=== PATIENT | female | born 1995 | race Caucasian/White ===

== ENCOUNTER 2018-03-06 19:34 | Outpatient (CLI) | payer MEDICAID ==
[2018-03-06 20:20] LABS: Amorphous Sediment,Urine Rare /hpf; Appearance,Urine Clear (Clear); Bacteria,Urine Occasional /hpf; Bilirubin,Urine Negative (Negative); Blood,Urine Negative (Negative); Color,Urine Yellow; Glucose,Urine (UA) Negative (Negative); Ketones,Urine Negative (Negative); Leukocyte Esterase,Urine Small (Negative); Mucus,Urine Rare /hpf; Nitrite,Urine Negative (Negative); Protein,Urine Negative (Negative); Specific Gravity,Urine 1.018 (1.001-1.035); Squamous Epithelial Cell,Urine 1 /hpf (0-4); Urobilinogen,Urine <2.0 mg/dL (<2.0); WBC,Urine 6 /hpf (0-5)
[2018-03-06 20:33] VITALS: BP 120/73; PULSE 87; RESP 15; TEMP 97.8
--- NOTE | 2018-03-07 08:44 | P.MSEPDOC ---
Presenting Problems - Arrival Data Date of Arrival on Unit: 03/06/18 Time of Arrival on Unit: 19:34 Mode of Transport: Ambulatory - Complaint OB-Reason for Admission/Chief Complaint: Possible Onset of Labor, Rule Out PROM , Observation/Evaluation Comment: Pt states that she has had some cramping and watery discharge since she woke up this morning Medical History - Information : 2 Para: 1 Term: 1 : 0 Abortions: Spontaneous or Elective: 0 Number of Living Children: 1 - Gestational Age Gestational Age by AMIRA (wks/days): 32 Weeks and 6 Days Review of Systems - Review of Systems Constitutional: No problems Breast: No problems ENT: No problems Cardiovascular: No problems Respiratory: No problems Gastrointestinal: No problems Genitourinary: No problems Musculoskeletal: No problems Neurological: No problems Skin: No problems Vital Signs - Temperature Temperature: 97.8 F Temperature Source: Temporal Artery Scan - Pulse Pulse Oximetery Pulse Rate: 87 Pulse Assessment Method: Automatic Cuff - Respirations Respiratory Rate: 15 Oxygen Delivery Method: Room Air O2 Sat by Pulse Oximetry: 99 - Blood Pressure Right Arm Blood Pressure: 120/73 Blood Pressure Mean: 88 Blood Pressure Source: Automatic Cuff Medical Screen Scoring (Pre) - Cervical Exam Dilation: 1-3 cm = 1 Membranes: Intact - Uterine Contractions Frequency: N/A Duration: N/A Intensity: N/A - Maternal Vital Signs Maternal Temperature: N/A Maternal Blood Pressure: N/A Signs of Preeclampsia: N/A Maternal Respirations: N/A - Pain Assessment Pain Location and Character: Lower, Abdomen Pain Scale Used: Numeric (1 - 10) Pain Intensity: 4 Pain Management Goal: 2 Pain Description: *Acute, Aching Pain Radiation Location: none Pain Frequency: Intermittent Pain Duration: 1 Pain Duration Units: Days Pain Behavior: None Exhibited Pain Aggravating Factors: None - Maternal Trauma Maternal Trauma: N/A - Assessment Baseline FHR: 145 Heart Rate - NICHD Category: Category I (Normal) = 0 NST: Reactive Position: N/A Station: N/A - Total Score Total Score (Pre): 1 - Level of Risk Level of Risk: Low (0-5) Physician Notification (Pre) - Physician Notified Physician Notified Date: 03/06/18 Physician Notified Time: 20:05 Physician/Practitioner Notifed:: Dr osorio New Order Received: Yes - Notification Comment Comment: Order to send UA, FFN, check cervix Medical Screen Scoring (Post) - Cervical Exam Dilation: 1-3 cm = 1 Membranes: Intact - Uterine Contractions Frequency: > 5 minutes apart = 1 Duration: N/A Intensity: N/A - Maternal Vital Signs Maternal Temperature: N/A Maternal Blood Pressure: N/A Signs of Preeclampsia: N/A Maternal Respirations: N/A - Maternal Trauma Maternal Trauma: N/A - Assessment Heart Rate: 145 Heart Rate - NICHD Category: Category I (Normal) = 0 NST: Reactive Position: N/A Station: N/A - Total Score Total Score (Post): 2 - Post Treatment Level of Risk Post Treatment Level of Risk: Low (0-5) Disposition - Disposition OB Disposition: Discharge to home Discharge Date: 03/06/18 Discharge Time: 21:20 I agree with the RN Medical Screening Exam: Yes Risk & Benefit of care provided described in d/c instruction: Yes Diagnosis: FALSE LABOR BEFORE 37 COMPLETED WEEKS OF GEST, THIRD TRI
== END 2018-03-06 21:20 | disposition home or self-care (01) ==
LOC: FBPOP 19:34
PROVIDERS: ATTEND Obstetrics & Gynecology
DX: O47.03 False labor before 37 completed weeks of gestation, third trimester (principal); Z3A.32 32 weeks gestation of pregnancy
CPT/HCPCS: 59025; 81001; 82731; 84112; 99213

== ENCOUNTER 2018-03-27 23:25 | Outpatient (CLI) | payer MEDICAID, BC ==
[2018-03-27 23:56] VITALS: BP 118/66; PULSE 99; RESP 16; TEMP 96.4
--- NOTE | 2018-03-31 17:56 | P.MSEPDOC ---
Presenting Problems - Arrival Data Date of Arrival on Unit: 03/27/18 Time of Arrival on Unit: 23:25 Mode of Transport: Wheelchair - Complaint OB-Reason for Admission/Chief Complaint: Possible Onset of Labor Medical History - Information : 2 Para: 1 Term: 1 : 0 Abortions: Spontaneous or Elective: 0 Number of Living Children: 1 - Gestational Age Gestational Age by AMIRA (wks/days): 35 Weeks and 6 Days Review of Systems - Review of Systems Constitutional: No problems Breast: No problems ENT: No problems Cardiovascular: No problems Respiratory: No problems Gastrointestinal: No problems Genitourinary: No problems Musculoskeletal: No problems Neurological: No problems Skin: No problems Vital Signs - Temperature Temperature: 96.4 F Temperature Source: Temporal Artery Scan - Pulse Right Brachial Pulse Rate: 99 Pulse Assessment Method: Automatic Cuff - Respirations Respiratory Rate: 16 Oxygen Delivery Method: Room Air O2 Sat by Pulse Oximetry: 100 - Blood Pressure Right Arm Blood Pressure: 118/66 Blood Pressure Mean: 83 Blood Pressure Source: Automatic Cuff Medical Screen Scoring (Pre) - Cervical Exam Dilation: 1-3 cm = 1 Membranes: Intact - Uterine Contractions Frequency: > 5 minutes apart = 1 Duration: N/A Intensity: N/A - Maternal Vital Signs Maternal Temperature: N/A Maternal Blood Pressure: N/A Signs of Preeclampsia: N/A - Pain Assessment Pain Location and Character: Lower, Abdomen Pain Scale Used: Numeric (1 - 10) Pain Intensity: 5 Pain Description: *Acute, Cramping Pain Frequency: Intermittent Pain Duration Units: Minutes Pain Behavior: None Exhibited Pain Aggravating Factors: Contractions - Maternal Trauma Maternal Trauma: N/A - Assessment Baseline FHR: 135 Heart Rate - NICHD Category: Category I (Normal) = 0 NST: Reactive Position: N/A Station: N/A - Total Score Total Score (Pre): 2 - Level of Risk Level of Risk: Low (0-5) Physician Notification (Pre) - Physician Notified Physician Notified Date: 03/27/18 Physician Notified Time: 23:46 Physician/Practitioner Notifed:: Dr. Polanco Spoke With: Dr. Polanco - Notification Comment Comment: Dr. Polanco in unit and reviewed tracing. report given on pt. Pt c/ o. Vs wnl. vag exam of 2/60/-3. Orders recieved to orally hydrate with water. To perform vag exam after 1 hr, if no change to d/c pt to home. Disposition - Disposition OB Disposition: Discharge to home Discharge Date: 03/28/18 Discharge Time: 00:47 I agree with the RN Medical Screening Exam: Yes Risk & Benefit of care provided described in d/c instruction: Yes Diagnosis: FALSE LABOR BEFORE 37 COMPLETED WEEKS OF GEST, THIRD TRI
== END 2018-03-28 00:47 | disposition home or self-care (01) ==
LOC: FBPOP 23:25
PROVIDERS: ATTEND Obstetrics & Gynecology
DX: O47.03 False labor before 37 completed weeks of gestation, third trimester (principal); Z3A.35 35 weeks gestation of pregnancy
CPT/HCPCS: 59025; 99213

== ENCOUNTER 2018-04-26 05:56 | Inpatient (IN) | payer BC, MEDICAID ==
[2018-04-26] MEDS ORDERED: OXYTOCIN 10 UNIT/ML 1 ML VIAL IM PRN (06:11)
[2018-04-26] MEDS ORDERED: TERBUTALINE 1 MG/ML VIAL SQ PRN (06:11)
[2018-04-26] MEDS ORDERED: LIDOCAINE 0.5% (PF) 5 MG/ML (50 ML SDV) SQ PRN (06:11)
[2018-04-26] MEDS ORDERED: CARBOPROST TROMETHAMINE 250 MCG/ML 1 ML AMP IM PRN (06:11)
[2018-04-26] MEDS ORDERED: METHYLERGONOVINE 0.2 MG/ML 1 ML AMP IM PRN (06:11)
[2018-04-26] MEDS ORDERED: OXYTOCIN 20 UNITS/1000 ML NS 1,000 ML IV SCH (06:15)
--- NOTE | 2018-04-26 06:40 | P.HPOB ---
History of Present Illness H&P Date: 04/26/18 This is a 22-year-old white female 2 para 1001 EDC 04/25/2018 at 40 and one sevenths weeks' gestation. Patient presents for induction with favorable multiparous cervix, postdates . Fetus is been active throughout the . She denies fluid leakage or vaginal bleeding. She is having irregular mild contractions. Past medical history is significant for irritable bowel syndrome. Past surgical history left shoulder repair 2012. Current medications vitamins. ALLERGIES include penicillin and sulfa to both she reports hives. Family history significant for infantile autism and type 2 diabetes. Obstetric history significant for vaginal delivery 2014, liveborn male. 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 She denies alcohol or drug use. history is significant for blood type O positive, rubella status immune. VDRL testing, urine culture, hepatitis B surface antigen, HIV testing, gonorrhea and chlamydia cultures, group B strep cultures all negative. One- hour Glucola 110. On exam this is a pleasant young female who is 5 foot 4 inches, 160 pounds, vital signs are stable including a blood pressure of 103/66, patient is afebrile. The general physical exam is within normal limits. The extremities reveal no edema. The chest is clear. Cervix is 9 m dilated, 70% effaced, -2 station, vertex presentation. Artificial amniorrhexis reveals clear fluid. heart rate is consistent with reactive NST. Impression: 40 and one sevenths weeks intrauterine , here for induction of labor. All signs reassuring. Plan: Oxytocin augmentation per hospital protocol. Close maternal and surveillance. Anticipate normal spontaneous vaginal delivery. Review of Systems Constitutional: Reports as per HPI Past Medical History Past Medical History: No Reported History History of Any Multi-Drug Resistant Organisms: None Reported Past Surgical History: No Surgical Hx Reported Smoking Status: Never smoker Medications and Allergies Home Medications Medication Instructions Recorded Confirmed Type Pnv,Calcium 72/Iron/Folic Acid 1 tab PO DAILY 11/20/14 04/26/18 History [ Vitamin with Low Iron] Allergies Allergy/AdvReac Type Severity Reaction Status Date / Time Penicillins Allergy Rash/Hives Verified 04/26/18 06:10 Sulfa (Sulfonamide Allergy Rash/Hives Verified 04/26/18 06:10 Antibiotics) Exam Intake and Output 04/25/18 04/25/18 04/26/18 14:59 22:59 06:59 Other: Weight 72.575 kg See dictation under HPI please Assessment and Plan Assessment: 40 and one sevenths weeks intrauterine , here for induction of labor. All signs reassuring. Plan: Close maternal and surveillance. Oxytocin per hospital protocol. Analgesic options have been reviewed with the patient. Anticipate normal spontaneous vaginal delivery. Time with Patient: Less than 30
[2018-04-26] MEDS: LACTATED RINGERS 1,000 ML IV SCH ×2 (06:47→08:54)
[2018-04-26 06:52] LABS: Basophils # (A) 0.1 k/uL (0-0.2); Basophils % (A) 1 %; Eosinophils # (A) 0.2 k/uL (0-0.7); Eosinophils % (A) 2 %; HCT 32.4 % (34.0-46.0); HGB 10.7 gm/dL (11.4-16.0); Hypochromasia Slight; Lymphocytes # (A) 1.9 k/uL (1.0-4.8); Lymphocytes % (A) 20 %; MCH 25.8 pg (25.0-35.0); MCV 78.1 fL (80.0-100.0); Mean Platelet Volume 9.6; Monocytes # (A) 0.5 k/uL (0-1.0); Monocytes % (A) 5 %; Neutrophils # (A) 6.7 k/uL (1.3-7.7); Neutrophils % (A) 70 %; Platelet Count 215 k/uL (150-450); RBC 4.14 m/uL (3.80-5.40); RDW 13.5 % (11.5-15.5); WBC 9.6 k/uL (4.0-11.0)
[2018-04-26 07:24] VITALS: BMI 27.4
[2018-04-26] MEDS ORDERED: BUTORPHANOL 1 MG/ML 1 ML VIAL IV PRN (07:53)
[2018-04-26] MEDS ORDERED: ROPIVACAINE 5MG/ML 20ML VIAL ONE (08:23)
[2018-04-26] MEDS ORDERED: fentaNYL (PF) 50 MCG/ML 5 ML AMP ONE (08:23)
[2018-04-26] MEDS ORDERED: SODIUM CHLORIDE 0.9% 100 ML BAG ONE (08:23)
[2018-04-26] MEDS ORDERED: diphenhydrAMINE 50 MG/ML 1 ML VIAL IVP PRN ×2 (11:07)
[2018-04-26] MEDS ORDERED: HYDROCORTISONE 2.5% RECTAL CREAM 30 GM TUBE RECTAL PRN (11:07)
[2018-04-26] MEDS ORDERED: diphenhydrAMINE 25 MG CAP PO PRN (11:07)
[2018-04-26] MEDS ORDERED: diphenhydrAMINE 50 MG CAP PO PRN (11:07)
[2018-04-26] MEDS ORDERED: SIMETHICONE 80 MG CHEWABLE PO PRN (11:07)
[2018-04-26] MEDS ORDERED: LANOLIN CREAM 5 GM TUBE TOPICAL PRN (11:07)
[2018-04-26] MEDS ORDERED: WITCH HAZEL 1 EACH MED..PAD TOPICAL PRN (11:07)
[2018-04-26] MEDS ORDERED: BENZOCAINE/MENTHOL SPRAY 1 GM/SPRAY AEROSOL TOPICAL PRN (11:07)
[2018-04-26] MEDS ORDERED: ZOLPIDEM 5 MG TAB PO PRN (11:07)
[2018-04-26] MEDS ORDERED: ACETAMINOPHEN TAB 325 MG TAB PO PRN (11:07)
--- NOTE | 2018-04-26 11:07 | P.PROBDLV ---
Vaginal Delivery Note - . Vaginal Delivery Note: This is a 22-year-old white female 2 para 1001 EDC 04/25/2018 at 40 and one sevenths weeks' gestation. Patient presents for induction with favorable multiparous cervix. Group B strep cultures negative, blood type O positive, rubella status immune. Please see dictated history and physical for details. Artificial amniorrhexis revealed clear fluid. Oxytocin was started and titrated per hospital protocol. Patient became uncomfortable, requested an epidural and this was placed without difficulty. She progressed through the first stage of labor unremarkably, became completely dilated at 1052 hours. Perineal body was prepped and draped in the usual sterile fashion. With excellent maternal expulsive efforts the infant's head delivered occiput anterior. She restituted accordingly. There was a nuchal cord 1 that was reduced. The left or anterior shoulder was delivered from underneath the pubic symphysis the oropharynx, nasopharynx, and external nares were all bulb suctioned. Patient was officially delivered of a liveborn female at 1055 hrs. Umbilical cord was doubly clamped and ligated, she was handed to waiting nurses for evaluation where scores of 8 and 9 at one and 5 minutes respectively were given. Placenta delivered spontaneously, it was inspected and noted to be intact with trivascular cord and a true knot in the cord at 1058 hrs. Cord blood has been sent to the lab for evaluation per patient's O+ status. Uterus is then massaged. Inspection of the cervix, vagina, perineum, periurethral, and perirectal areas revealed no lacerations and no defects. Total estimated blood loss 200 mL's. All sponge needle and enhancement counts are correct at the end of the procedure. Patient and her family are allowed to begin the bonding experience in the LDR.
[2018-04-26] MEDS: IBUPROFEN 600 MG TAB PO PRN (15:06)
[2018-04-26 15:59] VITALS: RESP 18
[2018-04-26] MEDS: SENNOSIDES-DOCUSATE SODIUM 1 EACH TAB PO SCH (19:50)
--- NOTE | 2018-04-27 07:49 | P.DS ---
Providers Date of admission: 04/26/18 05:56 Expected date of discharge: 04/27/18 Attending physician: Jenny Gardiner Primary care physician: Stated None Hospital Course: This is a 22-year-old white female 2 para 1001 EDC 04/25/1937 and one sevenths weeks' gestation. Patient presented for induction with favorable multiparous cervix. is unremarkable, rubella status immune, group B strep cultures negative, blood type O positive. Please see dictated history and physical for details. Artificial amniorrhexis was performed for clear fluid. Epidural was placed per her request. Patient went on to deliver a liveborn female vaginally, with scores of 8 and 9 at one and 5 minutes respectively. There was an estimated blood loss of 200 mL, 3 vessel cord, and a true knot in the cord along with a nuchal cord 1. Infant weighed 6 lbs. 8 oz. or 2955 g. Please see my dictated delivery summary for details. This morning the patient is doing well. She is voiding, ambulating and passing flatus without difficulty. Vital signs are stable and she is afebrile. Fundus is firm and in the midline, symmetric and 18 week size. Extremities are negative for edema. Breasts are not engorged. [place] is doing well. Breast-feeding is going well. I have given her prescription for a double electric breast pump per her request. Patient is therefore being discharged home in very good condition. She will follow-up in the office with me in 6 weeks. I have reminded her no intercourse , tampons or douching. She will use [id number] Advil, Motrin or Aleve as needed for pain. I've asked her to call me with any fevers shakes or chills, foul smelling or copious lochia, with the passage of large blood clots, with any pain not alleviated by [id number] products, with any difficulties breast-feeding, or with any concerns. We have briefly reviewed options for contraception and we will discuss this further in the office. Patient Condition at Discharge: Good Plan - Discharge Summary Discharge Rx Participant: No New Discharge Prescriptions: No Action Pnv,Calcium 72/Iron/Folic Acid [ Vitamin with Low Iron] 1 tab PO DAILY Discharge Medication List Pnv,Calcium 72/Iron/Folic Acid [ Vitamin with Low Iron] 1 tab PO DAILY 11/20/14 [History] Follow up Appointment(s)/Referral(s): Jenny Gardiner MD [STAFF PHYSICIAN] - 6 Weeks Discharge Disposition: HOME SELF-CARE
[2018-04-27] MEDS: SENNOSIDES-DOCUSATE SODIUM 1 EACH TAB PO SCH (08:00)
[2018-04-27 08:05] LABS: Basophils # (A) 0.1 k/uL (0-0.2); Basophils % (A) 1 %; Eosinophils # (A) 0.1 k/uL (0-0.7); Eosinophils % (A) 1 %; HCT 31.2 % (34.0-46.0); HGB 10.3 gm/dL (11.4-16.0); Hypochromasia Slight; Lymphocytes # (A) 2.4 k/uL (1.0-4.8); Lymphocytes % (A) 18 %; MCH 26.2 pg (25.0-35.0); MCHC 33.1 g/dL (31.0-37.0); MCV 79.1 fL (80.0-100.0); Mean Platelet Volume 9.4; Monocytes # (A) 0.7 k/uL (0-1.0); Monocytes % (A) 5 %; Neutrophils # (A) 9.9 k/uL (1.3-7.7); Neutrophils % (A) 74 %; Platelet Count 182 k/uL (150-450); RBC 3.94 m/uL (3.80-5.40); RDW 13.7 % (11.5-15.5); WBC 13.4 k/uL (4.0-11.0)
[2018-04-27 10:22] VITALS: BP 105/54; PULSE 80; TEMP 97.6
[2018-04-27] MEDS: IBUPROFEN 600 MG TAB PO PRN (11:14)
== END 2018-04-27 13:16 | disposition home or self-care (01) | DRG 807 ==
LOC: 4FBP 05:56
PROVIDERS: ADMIT Obstetrics & Gynecology; ATTEND Obstetrics & Gynecology
PROC: 10E0XZZ Delivery of Products of Conception, External Approach (ICD-10-PCS; principal; 2018-04-26)
PROC: 00HU33Z Insertion of Infusion Device into Spinal Canal, Percutaneous Approach (ICD-10-PCS; 2018-04-26)
PROC: 3E0R3BZ Introduction of Anesthetic Agent into Spinal Canal, Percutaneous Approach (ICD-10-PCS; 2018-04-26)
PROC: 10907ZC Drainage of Amniotic Fluid, Therapeutic from Products of Conception, Via Natural or Artificial Opening (ICD-10-PCS; 2018-04-26)
PROC: 3E033VJ Introduction of Other Hormone into Peripheral Vein, Percutaneous Approach (ICD-10-PCS; 2018-04-26)
DX: O48.0 Post-term pregnancy (principal); Z37.0 Single live birth; O69.81X0 Labor and delivery complicated by cord around neck, without compression, not applicable or unspecified; O99.62 Diseases of the digestive system complicating childbirth; K58.9 Irritable bowel syndrome, unspecified; O69.2XX0 Labor and delivery complicated by other cord entanglement, with compression, not applicable or unspecified; Z3A.40 40 weeks gestation of pregnancy; Z88.0 Allergy status to penicillin; Z88.2 Allergy status to sulfonamides; Z83.3 Family history of diabetes mellitus; Z84.89 Family history of other specified conditions
CPT/HCPCS: 85025; 86850; 86900; 86901

== ENCOUNTER 2023-08-02 20:02 | Emergency (ER) | payer BC, MEDICAID ==
[2023-08-02 20:35] VITALS: TEMP 97.9
--- NOTE | 2023-08-02 20:37 | ED ---
Head Injury HPI - General Source: patient, RN notes reviewed Mode of arrival: ambulatory Limitations: no limitations <Evangelina Bustos - Last Filed: 08/02/23 20:35> - General Source: patient, RN notes reviewed, old records reviewed Mode of arrival: ambulatory Limitations: no limitations - History of Present Illness MD Complaint: head injury, head pain, fall -: days(s) (2) Mechanism of Injury: unsure (Syncopal related, patient states she has narcolepsy and may have fell asleep or passed out) Location: face Loss of Consciousness: yes Previous Trauma to this Area: No Place: home Radiation: none Severity: severe Severity scale (1-10): 9 Provoking factors: none known Other Injuries: none Associated Symptoms: nausea, vomiting <Tarun Smith - Last Filed: 08/04/23 06:25> - General Chief complaint: Head Injury Stated complaint: Fall-Head Injury Time Seen by Provider: 08/02/23 20:12 - History of Present Illness Initial comments: 28-year-old female with complaint of left eye ecchymosis after fall on Wednesday. Patient states that she has narcolepsy and fell asleep while standing striking side of her left hand resulting in a hematoma and ecchymosis. (Evangelina Bustos) This is a 28-year-old female to the ER for evaluation of significant left eye pain and swelling. Patient states she was standing and had an episode where she passed out falling to the ground hitting the left side of her head left. Patient's pain is severe currently and she has significant swelling to the left side of her face around her left orbit (Tarun Smith) - Related Data Home Medications Medication Instructions Recorded Confirmed Pnv,Calcium 72/Iron/Folic Acid 1 tab PO DAILY 11/20/14 04/26/18 [ Vitamin with Low Iron] Allergies/Adverse reactions: Allergies Allergy/AdvReac Type Severity Reaction Status Date / Time Penicillins Allergy Rash/Hives Verified 08/02/23 20:10 Sulfa (Sulfonamide Allergy Rash/Hives Verified 08/02/23 20:10 Antibiotics) Review of Systems ROS Other: All systems not noted in ROS Statement are negative. <Evangelina Bustos - Last Filed: 08/02/23 20:35> ROS Other: All systems not noted in ROS Statement are negative. <Tarun Smith - Last Filed: 08/04/23 06:25> ROS Statement: Those systems with pertinent positive or pertinent negative responses have been documented in the HPI. Past Medical History Past Medical History: No Reported History Additional Past Medical History / Comment(s): narcolepsy History of Any Multi-Drug Resistant Organisms: None Reported Past Surgical History: No Surgical Hx Reported Additional Past Surgical History / Comment(s): left shoulder surgery Past Anesthesia/Blood Transfusion Reactions: No Reported Reaction Past Psychological History: No Psychological Hx Reported Smoking Status: Vaper Past Alcohol Use History: None Reported Past Drug Use History: None Reported - Past Family History Mother Family Medical History: No Reported History <Evangelina Bustos - Last Filed: 08/02/23 20:35> General Exam Limitations: no limitations <Evangelina Bustos - Last Filed: 08/02/23 20:35> General appearance: alert, in no apparent distress Head exam: Present: normocephalic, normal inspection. Absent: atraumatic (Significant swelling and ecchymosis to left orbit with severe pain and tenderness to palpation) Eye exam: Present: normal appearance, PERRL, EOMI. Absent: scleral icterus, conjunctival injection, periorbital swelling ENT exam: Present: normal exam, mucous membranes moist Neck exam: Present: normal inspection. Absent: tenderness, meningismus, lymphadenopathy Respiratory exam: Present: normal lung sounds bilaterally. Absent: respiratory distress, wheezes, rales, rhonchi, stridor Cardiovascular Exam: Present: regular rate, normal rhythm, normal heart sounds. Absent: systolic murmur, diastolic murmur, rubs, gallop, clicks GI/Abdominal exam: Present: soft, normal bowel sounds. Absent: distended, tenderness, guarding, rebound, rigid Extremities exam: Present: normal inspection, full ROM, normal capillary refill. Absent: tenderness, pedal edema, joint swelling, calf tenderness Back exam: Present: normal inspection Neurological exam: Present: alert, oriented X3, CN II-XII intact Psychiatric exam: Present: normal affect, normal mood Skin exam: Present: warm, dry, intact, normal color. Absent: rash <Tarun Smith - Last Filed: 08/04/23 06:25> - General Exam Comments Initial Comments: Visual Physical Exam Vital signs reviewed General: Well-appearing, nontoxic, no acute distress. Head: Normocephalic, atraumatic, left eye ecchymosis around soft tissue Eyes: PERRLA, EOMI ENT: Airway patent Chest: Nonlabored breathing Skin: No visual rash, normal skin tone Neuro: Alert and oriented 3 Musculoskeletal: No gross abnormalities (Stieler,Evangelina) Course <Tarun Smith - Last Filed: 08/04/23 06:25> Vital Signs 08/02/23 08/02/23 20:07 23:37 Temperature 97.9 F 97.9 F Pulse Rate 94 96 Respiratory 18 20 Rate Blood Pressure 128/77 118/76 O2 Sat by Pulse 100 100 Oximetry - Reevaluation(s) Reevaluation #1: 08/02/23 22:02 Medical records reviewed (Tarun Smith) Reevaluation #2: 08/02/23 22:02 Patient symptoms unchanged (Tarun Smith) Reevaluation #3: Patient informed of results and questions answered (Tarun Smith) Reevaluation #4: 08/02/23 22:03 Was pt. sent in by a medical professional or institution (, PA, SIGNAL CONSTRUCTOR, urgent care, hospital, or intermediate...) When possible be specific @ -no Did you speak to anyone other than the patient for history (EMS, parent, family, police, friend...)? What history was obtained from this source @ -no Did you review nursing and triage notes (agree or disagree)? Why? @ -agree Are old charts reviewed (outside hosp., previous admission, EMS record, old EKG, old radiological studies, urgent care reports/EKG's, intermediate records)? Report findings @ -yes Differential Diagnosis (chest pain, altered mental status, abdominal pain women, abdominal pain men, vaginal bleeding, weakness, fever, dyspnea, syncope, headache, dizziness, GI bleed, back pain, seizure, CVA, palpatations, mental health, musculoskeletal)? @ -prior EKG interpreted by me (3pts min.). @ -no X-rays interpreted by me (1pt min.). @ -no CT interpreted by me (1pt min.). @ -yes negative for acute disease U/S interpreted by me (1pt. min.). @ -no What testing was considered but not performed or refused? (CT, X-rays, U/S, labs)? Why? @ -none What meds were considered but not given or refused? Why? @ -none Did you discuss the management of the patient with other professionals (professionals i.e. Dr., PA, SIGNAL CONSTRUCTOR, lab, RT, psych nurse, socially responsible investment adviser, content editor, teacher, low altitude air defense officer, caseworker)? Give summary @ -no Was smoking cessation discussed for >3mins.? @ -no Was critical care preformed (if so, how long)? @ -no Were there social determinants of health that impacted care today? How? (Homelessness, low income, unemployed, alcoholism, drug addiction, transportation, low edu. Level, literacy, decrease access to med. care, skilled nursing, rehab)? @ -none Was there de-escalation of care discussed even if they declined (Discuss DNR or withdrawal of care, Hospice)? DNR status @ -no What co-morbidities impacted this encounter? (DM, HTN, Smoking, COPD, CAD, Cancer, CVA, ARF, Chemo, Hep., AIDS, mental health diagnosis, sleep apnea, morbid obesity)? @ -none Was patient admitted / discharged? Hospital course, mention meds given and route, prescriptions, significant lab abnormalities, going to OR and other pertinent info. @ - 28 female to ER for evaluation of headache head pain left eye pain and sw elling. No significant traumatic injury aside from edema is noted and patient can be discharged home Discharge Undiagnosed new problem with uncertain prognosis? @ -no Drug Therapy requiring intensive monitoring for toxicity (Heparin, Nitro, Insulin, Cardizem)? @ -no Were any procedures done? @ -no Diagnosis/symptom? @ -Facial trauma left orbital contusion Acute, or Chronic, or Acute on Chronic? @ -Acute Uncomplicated (without systemic symptoms) or Complicated (systemic symptoms)? @ -Complicated Side effects of treatment? @ -no Exacerbation, Progression, or Severe Exacerbation? @ -exacerbation Poses a threat to life or bodily function? How? (Chest pain, [place], [place], pneumonia, PE, COPD, DKA, ARF, appy, cholecystitis, CVA, Diverticulitis, Homicidal, Suicidal, threat to staff... and all critical care pts) @ -yes significant head trauma (Tarun Smith) Medical Decision Making <Evangelina Bustos - Last Filed: 08/02/23 20:35> - Radiology Data Radiology results: report reviewed (CT brain facial bones significant for left eye ecchymosis), image reviewed <Tarun Smith - Last Filed: 08/04/23 06:25> - Medical Decision Making I completed the quick note portion of this chart signed Evangelina Bustos PA-C (Evangelina Bustos) 28 female to ER for evaluation of headache head pain left eye pain and swelling. No significant traumatic injury aside from edema is noted and patient can be discharged home (Tarun Smith) Disposition <Evangelina Bustos - Last Filed: 08/02/23 20:35> Is patient prescribed a controlled substance at d/c from ED?: No Time of Disposition: 23:20 <Tarun Smith - Last Filed: 08/04/23 06:25> Clinical Impression: Closed head injury, Hematoma of left orbit, Traumatic hematoma of left orbit Disposition: HOME SELF-CARE Condition: Good Instructions (If sedation given, give patient instructions): Facial Contusion (ED) Referrals: None,Stated [Primary Care Provider] - 1-2 days
--- NOTE | 2023-08-02 23:01 | CT ---
EXAM: CT Head Without Intravenous Contrast CLINICAL HISTORY: ITS.REASON CT Reason: pain TECHNIQUE: Axial computed tomography images of the head/brain without intravenous contrast. CTDI is 6 45.2 mGy and DLP is 1236.4 mGy-cm. This CT exam was performed using one or more of the following dose reduction techniques: automated exposure control, adjustment of the mA and/or kV according to patient size, and/or use of iterative reconstruction technique. COMPARISON: No relevant prior studies available. FINDINGS: Brain: Unremarkable. No hemorrhage. No significant white matter disease. No edema. Ventricles: Unremarkable. No ventriculomegaly. Bones/joints: Unremarkable. No acute fracture. Soft tissues: Unremarkable. Sinuses: Unremarkable as visualized. No acute sinusitis. Mastoid air cells: Unremarkable as visualized. No mastoid effusion. IMPRESSION: Normal head/brain CT.
--- NOTE | 2023-08-02 23:02 | CT ---
EXAM: CT Maxillofacial Without Intravenous Contrast CLINICAL HISTORY: ITS.REASON CT Reason: pain TECHNIQUE: Axial computed tomography images of the face without intravenous contrast. CTDI is 45.2 mGy and DLP is 1236.4 mGy-cm. This CT exam was performed using one or more of the following dose reduction techniques: automated exposure control, adjustment of the mA and/or kV according to patient size, and/or use of iterative reconstruction technique. COMPARISON: No relevant prior studies available. FINDINGS: The mandible is intact. Intact maxillary alveolus. The orbital rims and floors are intact. The intraorbital contents are grossly unremarkable. Intact nasal bones, nasal septum, and maxillary spines. The zygomatic arches and pterygoid processes are intact. IMPRESSION: No facial bone fracture.
[2023-08-02 23:44] VITALS: BP 118/76; PULSE 96; RESP 20
== END 2023-08-02 23:37 | disposition home or self-care (01) ==
LOC: EC 20:02
DX: S05.12XA Contusion of eyeball and orbital tissues, left eye, initial encounter (principal); F17.290 Nicotine dependence, other tobacco product, uncomplicated; Z88.0 Allergy status to penicillin; Z88.2 Allergy status to sulfonamides; W19.XXXA Unspecified fall, initial encounter; Y92.009 Unspecified place in unspecified non-institutional (private) residence as the place of occurrence of the external cause
CPT/HCPCS: 70450; 70486; 99283